=== PATIENT | female | born 1945 | race Caucasian/White ===

== ENCOUNTER → 2017-12-30 12:41 | Outpatient (CLI) | payer MEDICARE, OTHER ==
[2013-04-05 11:57] VITALS: BMI 36.1
[~2017-12-30 12:41] MED LIST: ASPIRIN 81 MG E81 MG PO; AVAPRO75 MG; LASIX20 MG PO; MAGNESIUM OXID250 M1 PO; ZIAC 10/6.25 MG1 TAB PO
== END | disposition home or self-care (01) ==
LOC: D.MRI 12:41
DX: M54.2 Cervicalgia (principal)

== ENCOUNTER → 2018-06-07 17:54 | Outpatient (CLI) | payer MEDICARE, OTHER ==
[2013-04-05 11:57] VITALS: BMI 36.1
== END | disposition home or self-care (01) ==
LOC: D.MAMMO 09:30
DX: N63.14 Unspecified lump in the right breast, lower inner quadrant (principal)

== ENCOUNTER 2020-08-05 16:51 | Inpatient (IN) | payer MEDICARE, OTHER ==
[~2020-08-05] VITALS: Ht 165.1 cm; Wt 86.2 kg
[~2020-08-05 16:51] MED LIST changes: -AVAPRO75 MG; +AVAPRO75 MG PO
[2020-08-05 18:48] LABS: BASOPHILS 0.3 % (0-2); EOSINOPHILS 1.4 % (0-7); HEMATOCRIT 42.4 % (36.0-48.0); HEMOGLOBIN 13.6 g/dL (12-16); IMMATURE GRANULOCYTES 0.2 % (0-5); LYMPHOCYTE ABS# 1.64 10x3/uL (1.18-3.74); LYMPHOCYTES 17.3 % (15-50); MCH 28.9 pg (26.0-34.0); MCHC 32.1 g/dL (31.0-37.0); MEAN PLATELET VOLUME 10.1 fL (7.4-10.4); NEUTROPHIL ABS# 6.88 10x3/uL (1.56-6.13); NEUTROPHILS 72.8 % (40-80); PLATELET COUNT 190 10x3/uL (130-400); RBC 4.71 10x6/uL (4.00-5.40); RDW 13.9 % (11.5-14.5); WBC 9.5 10x3/uL (4.8-10.8)
[2020-08-05 19:09] LABS: ALBUMIN 3.6 g/dL (3.4-5.0); ALKALINE PHOSPHATASE 69 U/L (30-120); ALT (SGPT) 31 U/L (10-68); AMYLASE - SERUM 18 U/L (25-115); BILIRUBIN - TOTAL 0.98 mg/dL (0.2-1.3); CALC OSMOLALITY 287 mosm/kg (275-300); CALCIUM 8.9 mg/dL (8.5-10.1); CARBON DIOXIDE 28.9 mmol/L (21.0-32.0); CHLORIDE - SERUM 103 mmol/L (98-107); CREATININE - SERUM 0.7 mg/dL (0.6-1.3); GLUCOSE 102 mg/dL (74-106); LIPASE 95 U/L (73-393); PRO BNP 130 pg/mL (0-450); PROTEIN - SERUM 7.6 g/dL (6.4-8.2); SODIUM 143 mmol/L (136-145); UREA NITROGEN 21 mg/dL (7-18); eGFR NON AFRICAN AMERICAN 86 mL/min (90-120)
[2020-08-05 19:12] LABS: POTASSIUM - SERUM 2.8 mmol/L (3.5-5.1)
[2020-08-05 19:13] LABS: APTT 24.8 SECONDS (22.8-39.4); INR 1.13 (0.85-1.17); PROTIME 13.4 SECONDS (11.6-15.0)
[2020-08-05 19:31] VITALS: BP 159/69; BMI 31.6
[2020-08-05 20:00] VITALS: BP 160/63
--- NOTE | 2020-08-05 20:00 | NUR ---
JHONY MURILLO IN BED IV STARTED 20G RIGHT FA, FLUIDS STARTED ORDERED, SEE SHIFT ASSESSMNT, CALL LIGHT IN REACH
[2020-08-05 21:43] LABS: CKMB 0.9 U/L (0.0-3.6); CREATINE KINASE 81 UL (21-215); MAGNESIUM - SERUM 2.1 mg/dL (1.8-2.4)
[2020-08-05 21:48] LABS: TROPONIN-I < 0.017 ng/mL (0.000-0.060)
[2020-08-06] VITALS: BP 165/63
[2020-08-06 04:00] VITALS: BP 140/51
[2020-08-06 06:35] LABS: BASOPHILS 0.3 % (0-2); EOSINOPHILS 3.1 % (0-7); HEMATOCRIT 37.9 % (36.0-48.0); HEMOGLOBIN 11.8 g/dL (12-16); IMMATURE GRANULOCYTES 0.1 % (0-5); LYMPHOCYTES 18.1 % (15-50); MCH 28.4 pg (26.0-34.0); MCHC 31.1 g/dL (31.0-37.0); MCV 91.1 fL (80.0-100.0); MEAN PLATELET VOLUME 10.1 fL (7.4-10.4); MONOCYTES 8.5 % (2-11); NEUTROPHIL ABS# 5.02 10x3/uL (1.56-6.13); NEUTROPHILS 69.9 % (40-80); PLATELET COUNT 203 10x3/uL (130-400); RBC 4.16 10x6/uL (4.00-5.40); WBC 7.2 10x3/uL (4.8-10.8)
[2020-08-06 06:48] LABS: ALBUMIN 2.9 g/dL (3.4-5.0); ALKALINE PHOSPHATASE 57 U/L (30-120); ALT (SGPT) 28 U/L (10-68); CALC OSMOLALITY 285 mosm/kg (275-300); CALCIUM 8.2 mg/dL (8.5-10.1); CARBON DIOXIDE 27.2 mmol/L (21.0-32.0); CHLORIDE - SERUM 107 mmol/L (98-107); GLUCOSE 88 mg/dL (74-106); MAGNESIUM - SERUM 2.1 mg/dL (1.8-2.4); POTASSIUM - SERUM 3.1 mmol/L (3.5-5.1); PROTEIN - SERUM 6.3 g/dL (6.4-8.2); SODIUM 143 mmol/L (136-145); UREA NITROGEN 17 mg/dL (7-18)
[2020-08-06 06:52] LABS: CREATININE - SERUM 0.5 mg/dL (0.6-1.3); eGFR NON AFRICAN AMERICAN > 90 mL/min (90-120)
[2020-08-06 08:42] LABS: BILIRUBIN NEGATIVE (NEGATIVE); KETONE SMALL mg/dL (NEGATIVE); NITRITE NEGATIVE (NEGATIVE)
[2020-08-06 08:43] LABS: BACTERIA FEW HPF (NONE SEEN); SQUAMOUS EPITHELIAL OCC HPF (0-4); WHITE CELLS - URINE 0-5 HPF (0-4)
[2020-08-06 09:10] VITALS: BP 174/67
--- NOTE | 2020-08-06 10:15 | NUR ---
REHAB PRESCREENING Rehab referral received and chart reviewed. This patient has PT and OT ordered. Rehab will continue to follow for admission criteria when evals are in place. Thanks so much! Raina Casas, ACUTE COORDINATOR Rehab PD
[2020-08-06 12:00] LABS: T4 THYROXINE 7.2 ug/dL (4.7-13.3); THYROID STIMULATING HORMONE 0.63 uIU/mL (0.36-3.74)
[2020-08-06 12:35] VITALS: BP 171/63
[2020-08-06 13:21] VITALS: Ht 165.1 cm; Wt 86.2 kg
--- NOTE | 2020-08-06 14:30 | NUR ---
REHAB PRESCREENING Evaluations in place. Ms. Shukla is a good candidate for acute inpatient rehab if she is willing to come. MRI has been ordered. We will continue to follow this patient for rehab admission when her physicians feel she is appropriate for discharge. Thank you for this referral! Raina Casas, PUBLIC HEALTH INTERNSHIP Rehab PD
[2020-08-06 16:44] VITALS: BP 130/51
--- NOTE | 2020-08-06 18:38 | NUR ---
OT NOTE: PT HAD C/O OF BACK PAIN. PT COMPLETED SIDE ROLLING WITH MOD A X2. PT COMPLETED SUPINE TO SIT WITH MOD A X2. PT COMPLETED EOB SITTING WITH SBA-CGA. PT COMPLETED POSITION WITH MAX A X2 FOR INCREASED COMFORT. PT EXHIBITED GRAVITATIONAL INSECURITY WITH BED MOB. PT IS COOPERATIVE BUT ANXIOUS. PT REQUIRED EXTENDED TIME WITH TASKS. PT COMPLETED FACE AND HAND HYGIENE WITH SETUP. [phone] THANK YOU,NETO MCGRAW
[2020-08-06 20:00] VITALS: BP 112/60; BP 180/62
--- NOTE | 2020-08-06 20:00 | NUR ---
ALERT RESTING IN BED, REPORTS BACK PAIN BUT DOES NOT WANT TO TAKE PAIN MEDS DUE TO CONSTIPATION, SEE SHIFT ASSESSMENT CALL LIGHT IN REACH
[2020-08-07] VITALS: BP 154/67
[2020-08-07 04:00] VITALS: BP 134/64
[2020-08-07 06:12] LABS: BASOPHILS 0.2 % (0-2); EOSINOPHILS 4.5 % (0-7); HEMOGLOBIN 12.1 g/dL (12-16); IMMATURE GRANULOCYTES 0.2 % (0-5); LYMPHOCYTE ABS# 1.36 10x3/uL (1.18-3.74); LYMPHOCYTES 21.2 % (15-50); MCH 28.3 pg (26.0-34.0); MCV 91.1 fL (80.0-100.0); MEAN PLATELET VOLUME 10.1 fL (7.4-10.4); MONOCYTES 10.4 % (2-11); NEUTROPHIL ABS# 4.08 10x3/uL (1.56-6.13); NEUTROPHILS 63.5 % (40-80); PLATELET COUNT 195 10x3/uL (130-400); RBC 4.28 10x6/uL (4.00-5.40); WBC 6.4 10x3/uL (4.8-10.8)
[2020-08-07 06:42] LABS: ALBUMIN 2.8 g/dL (3.4-5.0); ALKALINE PHOSPHATASE 59 U/L (30-120); ALT (SGPT) 30 U/L (10-68); CALC OSMOLALITY 283 mosm/kg (275-300); CARBON DIOXIDE 27.6 mmol/L (21.0-32.0); CHLORIDE - SERUM 107 mmol/L (98-107); CREATININE - SERUM 0.5 mg/dL (0.6-1.3); GLUCOSE 95 mg/dL (74-106); PROTEIN - SERUM 6.2 g/dL (6.4-8.2); SODIUM 142 mmol/L (136-145); UREA NITROGEN 14 mg/dL (7-18); eGFR NON AFRICAN AMERICAN > 90 mL/min (90-120)
[2020-08-07 09:11] VITALS: BP 160/84
--- NOTE | 2020-08-07 10:44 | NUR ---
AM MEDS. PATIENT IS WITHOUT DISTRESS.
--- NOTE | 2020-08-07 12:51 | NUR ---
SPOKE TO DR SAUCEDA, RELAYED ORDER AND DC PLAN TO DR GALE AND MJ. CONTINUE WITH PLAN OF CARE
[2020-08-07 12:57] VITALS: BP 176/81
--- NOTE | 2020-08-07 14:11 | NUR ---
OT NOTE: PT DOING BETTER TODAY. REPORTS SIGNIFICANT PAIN RELIEF SECONDARY TO PAIN MEDS. PROVIDES INFO REGARDING UPCOMING SURGERY.. EDUCATION ON "LOG ROLLING" AND ABLE TO PERFORM SUPINE TO SIT WITH MOD ASSIST; IN ROOM AMB WITH WALKER AND MIN ASSIST; TOILET TRANSFER WITH MIN ASSIST AND MOD ASSIST FOR SIT TO STAND FROM TOILET. GROOMING AND FEEDING WITH SET UP. RECOMMEND IP REHAB [facility], OTR/L 130-2
[2020-08-07 17:07] VITALS: BP 136/65
[2020-08-07 20:00] VITALS: BP 152/83
--- NOTE | 2020-08-07 20:00 | NUR ---
ALERT RESTING IN BED, DENIES NEEDS AT THIS TIME, SEE SHIFT ASSESSMENT CALL ONEL ROBERTS
[2020-08-08 04:00] VITALS: BP 132/63
[2020-08-08 06:46] LABS: ALBUMIN 2.5 g/dL (3.4-5.0); ALKALINE PHOSPHATASE 54 U/L (30-120); ALT (SGPT) 26 U/L (10-68); BILIRUBIN - TOTAL 0.46 mg/dL (0.2-1.3); CALCIUM 7.7 mg/dL (8.5-10.1); CARBON DIOXIDE 30.1 mmol/L (21.0-32.0); CHLORIDE - SERUM 108 mmol/L (98-107); CREATININE - SERUM 0.5 mg/dL (0.6-1.3); GLUCOSE 118 mg/dL (74-106); MAGNESIUM - SERUM 2.2 mg/dL (1.8-2.4); PROTEIN - SERUM 5.8 g/dL (6.4-8.2); SODIUM 143 mmol/L (136-145); eGFR NON AFRICAN AMERICAN > 90 mL/min (90-120)
[2020-08-08 06:47] LABS: BASOPHILS 0.2 % (0-2); EOSINOPHILS 4.9 % (0-7); HEMATOCRIT 37.5 % (36.0-48.0); HEMOGLOBIN 11.6 g/dL (12-16); IMMATURE GRANULOCYTES 0.2 % (0-5); LYMPHOCYTE ABS# 1.01 10x3/uL (1.18-3.74); LYMPHOCYTES 18.3 % (15-50); MCH 28.2 pg (26.0-34.0); MCHC 30.9 g/dL (31.0-37.0); MCV 91.2 fL (80.0-100.0); MEAN PLATELET VOLUME 10.1 fL (7.4-10.4); MONOCYTES 9.4 % (2-11); PLATELET COUNT 188 10x3/uL (130-400); RBC 4.11 10x6/uL (4.00-5.40); RDW 13.9 % (11.5-14.5); WBC 5.5 10x3/uL (4.8-10.8)
[2020-08-08 06:48] LABS: CALC OSMOLALITY 284 mosm/kg (275-300); UREA NITROGEN 10 mg/dL (7-18)
--- NOTE | 2020-08-08 07:45 | NUR ---
PT RESTING IN BED. CALLING OUT FOR ASSISTANCE. PT HAS HAD INCONTINENCE SPELL. PROVIDED JOSE CARE AND BEDDING CHANGED. RESP EVEN AND UNLABORED. IV TO RIGHT FOREARM WITH NS @ 75ML/HR INFUSING VIA PUMP. SITE WITHOUT REDNESS OR EDEMA. PT VOICES NEED FOR MUSCLE RELAXER. EDUCATED PT REGARDING NEXT SCHEDULED DOSE FOR MED. PT VOICES UNDERSTANDING. DENIES FURTHER NEEDS AT THIS TIME. CL WITHIN REACH. ENCOURAGED TO CALL WITH NEEDS. CONTINUE POC
[2020-08-08 09:33] VITALS: BP 150/71
--- NOTE | 2020-08-08 10:29 | NUR ---
REHAB PRESCREENING Rehab referral received and chart reviewed. Ms. Shukla is a good candidate for acute inpatient rehab if she is agreeable to come. I will beging her electronic screen. She can be admitted to rehab when approvals are in place and her physicians feel she is appropriate for discharge. Thank you for this referral! Raina Casas, ROBOTICS SYSTEMS ENGINEER Rehab PD
[2020-08-08] MEDS ORDERED: ZANAFLEX4 MG PO (12:01)
[2020-08-08] MEDS ORDERED: MIRALAX17 GM PO (12:04)
[2020-08-08 13:40] VITALS: BP 146/59
--- NOTE | 2020-08-08 14:45 | MORECARE ---
CASE MANAGEMENT DISCHARGE SUMMARY PATIENT: CAITLIN TOPETE UNIT: [id number] ADM DATE: 08/06/20 AGE: 75 : 45 SEX: F ROOM/BED: D.2219 AUTHOR: BENITA,DOC PHYSICIAN: REFERRING PHYSICIAN: MARE OLEA MD DATE OF SERVICE: 08/08/20 Case Management Discharge Planning Summary CT Patient Name: CAITLIN TOPETE Attending MD : MARE DOMÍNGUEZ Medical Record: [id number] Encounter : [id number] Facility : [address] [place] [address] Admission Date : 113:51 Center Discharge Date : [address] [place] [address] Date of : DC Plan ID : [id number] Age/Sex/Martia : 75/ F/M Printed on : 08/08/20 14:43 CT DCP Review Details Anticipated D/C: Expected LOS : Case Status : INITIATED - Initial Reviewe: [id number] - Alma Rosales Initial Review: 08/05/2020 Planned Disposi: - Final Discharge: - Final Reviewer : : Final Review : Comments CT Entered Date Type Reviewer 08/08/20 14:16 CT Discharge Planning Alma Rosales Comment CM met with patient at bedside after obtaining verbal consent. CM discussed availability / needs of home health, REHAB and medical equipment. PATIENT WOULD LIKE TO GO TO INPATIENT REHAB AT [facility]. CARMEN SIGNED AND IMM AND PLACED ON CHART. PATIENT HAS ROLLATOR ANDCANE AT HOME. LIVES AT [facility]. DR. RAMIREZ IS PCP. SHE LIVES ALONE. PLAN FOR DC TO [facility] TODAY. TLSO BRACE WILL BE DELIVERED TO HER ROOM PER NURSING. CM TO FOLLOW AND ASSIST NEEDED. DCP Focus Questions & Answers [facility] CAITLIN TOPETE MR#: [id number] /Age/Sex/Ujttuk4-Axn-24 /75/F /M Attending Physician Name: DEBBY OLEA [id number] Patient Account:[id number] [facility] 1 All edits/amendments must be made on the electronic document DICTATION DATE: 08/08/201442 REGIONAL ECONOMIC LIAISON: GAGAN 08/08/201442 RPT#: [id number] DC DATE: STATUS: ADM IN [facility] [address] [place] [address] END OF REPORT
--- NOTE | 2020-08-08 15:00 | NUR ---
RECEIVED NOTIFICATION THAT SON HAD CONTACTED STAFF AND STATED THAT HIS MOTHER, PT, HAD VOICED THAT IF SHE WERE TO MAKE IT HOME THAT SHE WAS GOING TO KILL HERSELF. STAFF ENTERED ROOM AND VOICED TO STAFF, "MY STUPID SON. CALLED UP HERE AND TOLD EVERYONE THAT I WAS TALKING SUICIDE. I AM NOT SUICIDAL, I WAS JUST BLOWING STEAM. I'M 76 YEARS OLD, WHY WOULD I END MY LIFE NOW, I COULD HAVE DONE IT MANY YEARS AGO. I'M NOT GOING TO DO ANYTHING. I AM GOING TO GO TO REHAB AND LEARN WAYS TO TAKE CARE OF MYSELF, AND WHEN I GET HOME AND I CAN'T DO SOMETHING THEN I WILL CALL MY NEIGHBOR WHOSE HOUSE IS IN MY BACK YARD TO COME AND HELP ME. BUT I PROMISE I AM NOT GOING TO DO ANYTHING."
--- NOTE | 2020-08-08 15:15 | NUR ---
CONTACTED PANTERA HUGHES APN REGARDING PT SONS CALL AND TALKING WITH PT. ORDER PLACED FOR PSYCH CONSULT AT THIS TIME.
--- NOTE | 2020-08-08 16:05 | NUR ---
Patient score of 0. She has never had any suicidal thoughts or actions. She just let of stearm to her son and he thought she was taking literally about her "killing herself". She states she "would never do that!, I'd not get to go to [facility]" Rev'd interview and risk score with charge nurse and Dr. Barksdale. No further interventions needed at this date/time.
--- NOTE | 2020-08-08 16:25 | NUR ---
OT NOTE: PT COMPLETED SIT TO STAND WITH CGA. PT COMPLETED SITTING BALANCE WITH SPV. PT COMPLETED HAIR GROOMING WITH SETUP. PT FACE HYGIENE WITH SETUP. PT REQUIRED EXTRA TIME AND MIN VERBAL CUES. [phone] THANK YOU,NETO MCGRAW
--- NOTE | 2020-08-08 16:58 | NUR ---
REPORT CALLED TO TERESA RAIN IN REHAB
--- NOTE | 2020-08-08 17:46 | MORECARE ---
CASE MANAGEMENT DISCHARGE SUMMARY PATIENT: CAITLIN TOPETE UNIT: [id number] ADM DATE: 08/06/20 AGE: 75 : 45 SEX: F ROOM/BED: D.2219 AUTHOR: BENITA,DOC PHYSICIAN: REFERRING PHYSICIAN: MARE OLEA MD DATE OF SERVICE: 08/08/20 Case Management Discharge Planning Summary CT Patient Name: CAITLIN TOPETE Attending MD : MARE DOMÍNGUEZ Medical Record: [id number] Encounter : [id number] Facility : [address] [place] [address] Admission Date : 113: Center Discharge Date : 08/08/[address] [place] [address] Date of : DC Plan ID : [id number] Age/Sex/Martia : 75/ F/M Printed on : 08/08/20 17:45 CT DCP Review Details Anticipated D/C: Expected LOS : Case Status : INITIATED - Initial Reviewe: [id number] - Alma Rosales Initial Review: 08/05/2020 Planned Disposi: - Final Discharge: - Final Reviewer : : Final Review : Comments CT Entered Date Type Reviewer 08/08/20 14:16 CT Discharge Planning Alma Rosales Comment CM met with patient at bedside after obtaining verbal consent. CM discussed availability / needs of home health, REHAB and medical equipment. PATIENT WOULD LIKE TO GO TO INPATIENT REHAB AT [facility]. CARMEN SIGNED AND IMM AND PLACED ON CHART. PATIENT HAS ROLLATOR ANDCANE AT HOME. LIVES AT [facility]. DR. RAMIREZ IS PCP. SHE LIVES ALONE. PLAN FOR DC TO [facility] TODAY. TLSO BRACE WILL BE DELIVERED TO HER ROOM PER NURSING. CM TO FOLLOW AND ASSIST NEEDED. DCP Focus Questions & Answers [facility] CAITLIN TOPETE MR#: [id number] /Age/Sex/Orohvi5-Itf-71 /75/F /M Attending Physician Name: DEBBY OLEA [id number] Patient Account:[id number] [facility] Page -1 of 1 All edits/amendments must be made on the electronic document DICTATION DATE: 08/08/201744 MEND WORKER: GAGAN 08/08/201744 RPT#: [id number] DC DATE:08/08/20 STATUS: DIS IN [facility] [address] [place] [id number] END OF REPORT
--- NOTE | 2020-08-11 10:42 | EC ---
PATIENT:CAITLIN TOPETE DATE OF SERVICE: 08/06/20 SEX: F MEDICAL RECORD: [id number] DATE OF : 45 LOCATION:[facility] AGE OF PATIENT: 75 ADMISSION DATE: 08/06/20 REFERRING PHYSICIAN: INTERPRETING PHYSICIAN: FLORA GARCIA MD ECHOCARDIOGRAM REPORT ECHO CHARGES 4 ECHO COMPLETE Date: 08/06/20 CLINICAL DIAGNOSIS: SYNCOPE ECHOCARDIOGRAPHIC MEASUREMENTS (adult normal given) AC root (d.<3.7cm) 2.9 cm LV Septum d (<1.2 cm> 0.8 cm Valve Excursion 1.6 cm LV Septum (systole) 1.1 cm Left Atria (s.<4.0cm> 4.2 cm LVPW d(<1.2cm) 1.1 cm RV (d.<2.3cm) 2.4 cm LVPW (sytole) 1.2 cm LV diastole(<5.6CM) 5.8 cm MV E-F(>70mm/sec) cm LV systole 3.9 cm LVOT Diameter 1.7 cm MV exc.(>10mm) 2.0 cm Est.ejection fraction (50-75%) % DOPPLER: LVIT cm/sec A 104 cm/sec E 71 cm/sec LA cm/sec RVSP 33 mmHg LVOT 182 cm/sec AOP1/2T m/s Asc. Ao 205 cm/sec RVOT 102 cm/sec RA cm/sec PA 134 cm/sec AV Gradient Peak 16.8 mmHg AV Mean 6.3 mmHg AV Area 1.9 cm MV Gradient Peak 3.8 mmHg MV Mean 2.1 mmHg MV Area cm COMMENTS: Can Runner: Fito SRIVASTAVA Civil Preparedness Officer: 3 Dr. Lieberman TAPE# Pericardial Effusion N DATE OF SERVICE: Adequate 2D, color flow imaging, spectral Doppler, and M-Mode. No LVH. LV internal dimensions are normal. Wall motion normal. EF greater than or equal to 55%. Aortic valve is sclerotic. No evidence of stenosis by Doppler interrogation. Left atrium is minimally dilated 4.2 cm. Mitral valve shows no prolapse. Trace MR. Right-sided chambers are grossly normal. Trace TR. ECHOCARDIOGRAM REPORT [id number] CAITLIN TOPETE TRANSINT:[id number] Voice Confirmation ID: [id number] DOCUMENT ID: [id number] FLORA GARCIA MD at 1042 CC: [id number] DICTATION DATE: 08/06/20 1641 STRADDLE TRUCK DRIVER: 08/06/202108 DIS IN 08/08/20 [place] [place] [address]
--- NOTE | 2020-08-11 14:51 | MORECARE ---
CASE MANAGEMENT DISCHARGE SUMMARY PATIENT: CAITLIN TOPETE UNIT: [id number] ADM DATE: 08/06/20 AGE: 75 : 45 SEX: F ROOM/BED: D.2219 AUTHOR: BENITA,DOC PHYSICIAN: REFERRING PHYSICIAN: MARE OLEA MD DATE OF SERVICE: 08/11/20 Case Management Discharge Planning Summary CT Patient Name: CAITLIN TOPETE Attending MD : MARE DOMÍNGUEZ Medical Record: [id number] Encounter : [id number] Facility : [address] [place] [address] Admission Date : 113:51 Center Discharge Date : 08/08/[address] [place] [address] Date of : DC Plan ID : [id number] Age/Sex/Martia : 75/ F/M Printed on : 08/11/20 14:50 CT DCP Review Details Anticipated D/C: Expected LOS : Case Status : INITIATED - Initial Reviewe: [id number] - Alma Rosales Initial Review: 08/05/2020 Planned Disposi: - Final Discharge: - Final Reviewer : : Final Review : Comments CT Entered Date Type Reviewer 08/08/20 14:16 CT Discharge Planning Alma Rosales Comment CM met with patient at bedside after obtaining verbal consent. CM discussed availability / needs of home health, REHAB and medical equipment. PATIENT WOULD LIKE TO GO TO INPATIENT REHAB AT [facility]. CARMEN SIGNED AND IMM AND PLACED ON CHART. PATIENT HAS ROLLATOR ANDCANE AT HOME. LIVES AT [facility]. DR. RAMIREZ IS PCP. SHE LIVES ALONE. PLAN FOR DC TO [facility] TODAY. TLSO BRACE WILL BE DELIVERED TO HER ROOM PER NURSING. CM TO FOLLOW AND ASSIST NEEDED. DCP Focus Questions & Answers [facility] CAITLIN TOPETE MR#: [id number] /Age/Sex/Tvtkuq5-Pfl-28 /75/F /M Attending Physician Name: DEBBY OLEA [id number] Patient Account:[id number] [facility] Page -1 of 1 All edits/amendments must be made on the electronic document DICTATION DATE: 08/11/20 145 GRAVITY PROSPECTING OPERATOR: GAGAN 08/11/20 145 RPT#: [id number] DC DATE:08/08/20 STATUS: DIS IN [facility] [address] [place] [address] END OF REPORT
== END 2020-08-08 17:33 | DRG 689 ==
LOC: D.MS 16:51 → OBSVTIME 16:51 → D.MS 16:51
PROVIDERS: Family Medicine; ADMIT Family Medicine; ATTEND Family Medicine
DX: N39.0 Urinary tract infection, site not specified (principal); G93.41 Metabolic encephalopathy; E42 Marasmic kwashiorkor; E43 Unspecified severe protein-calorie malnutrition; I50.22 Chronic systolic (congestive) heart failure; I11.0 Hypertensive heart disease with heart failure; E78.5 Hyperlipidemia, unspecified; I73.9 Peripheral vascular disease, unspecified; R26.89 Other abnormalities of gait and mobility; E87.6 Hypokalemia; R63.4 Abnormal weight loss; Z68.36 Body mass index [BMI] 36.0-36.9, adult; S22.081D Stable burst fracture of T11-T12 vertebra, subsequent encounter for fracture with routine healing

== ENCOUNTER 2020-08-08 17:30 | Inpatient (IN) | payer MEDICARE, OTHER ==
[~2020-08-08] VITALS: Ht 165.1 cm; Wt 83.9 kg
[~2020-08-08 17:30] MED LIST changes: +MIRALAX17 GM PO; +ZANAFLEX4 MG PO
[2020-08-08 18:05] VITALS: BP 152/66; BMI 30.8
[2020-08-08 20:00] VITALS: BP 157/63
--- NOTE | 2020-08-08 20:00 | NUR ---
PATIENT RECEIVED SITTING UP IN BED. ASSESSMENT & VITAL SIGNS DONE. PATIENT HAD NO C/O PAIN OR DISTRESS AT THIS TIME. PATIENT TOILETED WITH MINIMAL ASSIST OUT OF BED USING ROLLING WALKER. PATIENT ABLE TO CLEAN PERIAREA. VOID ONLY. RETURNED TO LOW BED. ALARM ON. CALL LIGHT & BEDSIDE TABLE WITHIN REACH. WILL CONTINUE TO MONITOR.
--- NOTE | 2020-08-08 22:32 | NUR ---
I have reviewed this patient and I concur with the Shift Assessment completed by the Licensed Practical Nurse today this shift.
--- NOTE | 2020-08-09 02:40 | NUR ---
PATIENT USED CALL LIGHT FOR ASSIST. PATIENT MODERATE ASSIST INTO & OUT OF BED. PATIENT USED ROLLING WALKER TO BATHROOM. INDEPENDENT WITH TOILETING & PERICARE. PATIENT BRUSHED HER HAIR & TEETH. RETURNED TO LOW BED. ALARM ON. BEDSIDE TABLE & CALL LIGHT WITHIN REACH. WILL CONTINUE TO MONITOR.
[2020-08-09 06:02] LABS: BASOPHILS 0.2 % (0-2); EOSINOPHILS 3.8 % (0-7); HEMATOCRIT 37.8 % (36.0-48.0); IMMATURE GRANULOCYTES 0.4 % (0-5); LYMPHOCYTE ABS# 1.11 10x3/uL (1.18-3.74); LYMPHOCYTES 19.9 % (15-50); MCH 28.8 pg (26.0-34.0); MCHC 31.7 g/dL (31.0-37.0); MCV 90.9 fL (80.0-100.0); MEAN PLATELET VOLUME 9.9 fL (7.4-10.4); MONOCYTES 10.2 % (2-11); NEUTROPHIL ABS# 3.65 10x3/uL (1.56-6.13); NEUTROPHILS 65.5 % (40-80); PLATELET COUNT 181 10x3/uL (130-400); RBC 4.16 10x6/uL (4.00-5.40); WBC 5.6 10x3/uL (4.8-10.8)
[2020-08-09 06:10] LABS: CALC OSMOLALITY 287 mosm/kg (275-300); CALCIUM 8.1 mg/dL (8.5-10.1); CARBON DIOXIDE 31.2 mmol/L (21.0-32.0); CHLORIDE - SERUM 107 mmol/L (98-107); CREATININE - SERUM 0.5 mg/dL (0.6-1.3); GLUCOSE 107 mg/dL (74-106); POTASSIUM - SERUM 3.4 mmol/L (3.5-5.1); SODIUM 145 mmol/L (136-145); UREA NITROGEN 11 mg/dL (7-18); eGFR NON AFRICAN AMERICAN > 90 mL/min (90-120)
--- NOTE | 2020-08-09 07:15 | NUR ---
AWAKE AND ALERT. ORIENTED X3. UP TO BR WITH ONE PERSON MIN ASSIST . VOIDED WITHOUT DIFFICULTY. REFUSED TO WEAR TLSO EVEN AFTER EXPLAINED NEED TO USE. LUNGS ARE CLEAR BILATERALLY, NO COUGH NOTED. ENCOURAGED TO USE IS INSTRUCTED. SITTING UP IN CHAIR AT BEDSIDE FOR BREAKFAST.
[2020-08-09 08:00] VITALS: BP 142/68
--- NOTE | 2020-08-09 09:30 | NUR ---
ATE MOST OF BREAKFAST. TOOK AM MEDS WITHOUT DIFFICULTY. UP AMBULATED IN HALLWAY WITH PT.
[2020-08-09 11:18] VITALS: Ht 165.1 cm; Wt 83.9 kg
--- NOTE | 2020-08-09 13:27 | NUR ---
ATE MOST OF LUNCH. DENIES NEEDS. NO CHANGES AT THIS TIME.
--- NOTE | 2020-08-09 17:43 | NUR ---
UP TO BR WITH ONE PERSON MIN ASSIST. VOIDED WITHOUT DIFFICULTY. UP IN CHAIR AT BEDSIDE FOR SUPPER. ATE MOST OF SUPPER. NO CHANGES NOTED. DENIES NEEDS.
--- NOTE | 2020-08-09 19:29 | NUR ---
PATIENT RECEIVED SITTING UP IN BED. ASSESSMENT & VITAL SIGNS DONE. NO C/O PAIN OR DISTRESS. PATIENT GIVEN POTASSIUM 40 MEQ D/T TO LAB VALUE 3.4. POTASSIUM LAB TO BE DRAWN 0 ORDERED. BED LOW. CALL LIGHT WITHIN REACH. WILL CONTINUE TO MONITOR.
[2020-08-09 20:00] VITALS: BP 140/56
--- NOTE | 2020-08-09 22:32 | NUR ---
I have reviewed this patient and I concur with the Shift Assessment completed by the Licensed Practical Nurse today this shift.
--- NOTE | 2020-08-09 23:05 | NUR ---
LAB RESULTS BACK POTASSIUM 3.5. ELECTROLYTE PRODICOL GIVE 40 MEQ OF POTASSIUM. PATIENT GIVEN 2 20 MEQ OF POTASSIUM. RECHECK LABS IN THE MORNING. PATIENT REQUEST FOR FOODS TO EAT FOR POTASSIUM. LIST OF POTASSIUM RICH FOODS PRINTED & GIVEN TO PATIENT. WILL CONTINUE TO MONITOR.
--- NOTE | 2020-08-10 03:34 | NUR ---
PATIENT EYES CLOSED. RESPIRATIONS 19 & EVEN. BED LOW. ALARM ON. CALL LIGHT & BESIDE TABLE WITHIN REACH. WILL CONTINUE TO MONITOR.
--- NOTE | 2020-08-10 04:54 | NUR ---
PATIENT USED CALL LIGHT FOR ASSIST. PATIENT MINIMAL ASSIST OUT OF BED. PATIENT AMBULATED USING ROLLING WALKER TO COMMODE. VOID ONLY. PATIENT WASHED HANDS & RETURNED TO LOW BED. BEDSIDE TABLE & CALL LIGHT WITHIN REACH. WILL CONTINUE TO MONITOR.
[2020-08-10 06:20] LABS: BASOPHILS 0.2 % (0-2); CALC OSMOLALITY 283 mosm/kg (275-300); CALCIUM 8.6 mg/dL (8.5-10.1); CARBON DIOXIDE 28.1 mmol/L (21.0-32.0); CHLORIDE - SERUM 107 mmol/L (98-107); CREATININE - SERUM 0.5 mg/dL (0.6-1.3); EOSINOPHILS 5.5 % (0-7); GLUCOSE 107 mg/dL (74-106); HEMOGLOBIN 11.9 g/dL (12-16); LYMPHOCYTE ABS# 1.41 10x3/uL (1.18-3.74); MCH 28.3 pg (26.0-34.0); MCHC 30.5 g/dL (31.0-37.0); MEAN PLATELET VOLUME 9.8 fL (7.4-10.4); NEUTROPHIL ABS# 2.74 10x3/uL (1.56-6.13); NEUTROPHILS 56.3 % (40-80); PLATELET COUNT 177 10x3/uL (130-400); RDW 14.2 % (11.5-14.5); SODIUM 142 mmol/L (136-145); UREA NITROGEN 14 mg/dL (7-18); WBC 4.9 10x3/uL (4.8-10.8); eGFR NON AFRICAN AMERICAN > 90 mL/min (90-120)
[2020-08-10 07:11] LABS: MCV 92.9 fL (80.0-100.0)
--- NOTE | 2020-08-10 07:39 | NUR ---
PT RESTING IN BED WITH EYES OPEN CALL LIGHT IN REACH WILL MONITER
--- NOTE | 2020-08-10 07:58 | NUR ---
PT RESTING IN BED WITH EYES OPEN CALL LIGHT IN REACH WILL MONITER
[2020-08-10 08:00] VITALS: BP 143/63
--- NOTE | 2020-08-10 18:00 | NUR ---
PT UP TO BATHROOM REPORTED HAVING DIAREHEA SAID SHE DID NOT WANNA TAKE NEXT DOSE OF MIRILAX
--- NOTE | 2020-08-10 18:35 | NUR ---
PT RESTING IN BED WITH EYES OPEN WATCHING TV CALL LIGHT IN REACH WILL MONITER
[2020-08-10 19:33] VITALS: BP 151/61
--- NOTE | 2020-08-10 19:41 | NUR ---
PATIENT RECEIVED SITTING UP IN BED. ASSESSMENT & VITAL SIGNS DONE. NO C/O PAIN OR DISTRESS. BED SIDE TABLE & CALL LIGHT WITHIN REACH. ALARM ON. WILL COMTINUE TO MONITOR.
--- NOTE | 2020-08-11 01:27 | NUR ---
PATIENT EYES CLOSED. RESPIRATIONS 28 & EVEN. BED LOW. BEDSIDE TABLE & CALL LIGHT WITHIN REACH. ANTHONY CONTINUE TO MONITOR.
--- NOTE | 2020-08-11 02:03 | NUR ---
PATIENT USED CALL LIGHT FOR ASSIST. STANDBY ASSIST IN & OUT OF BED & WHEELCHAIR. PATIENT HAD VOID. RETURNED TO LOW BED. ALARM ON. BEDSIDE TABLE & CALL LIGHT WITHIN REACH. WILL CONTINUE TO MONITOR.
--- NOTE | 2020-08-11 04:01 | NUR ---
PATIENT PAIN MEDICATION EFFECTIVE. EYES CLOSED. RESPIRATIONS 18 & EVEN. BED LOW. ALARM ON. CALL LIGHT WITHIN REACH. WILL CONTINUE TO MONITOR.
--- NOTE | 2020-08-11 06:09 | NUR ---
I have reviewed this patient and I concur with the Shift Assessment completed by the Licensed Practical Nurse today this shift.
[2020-08-11 08:02] VITALS: BP 157/73
--- NOTE | 2020-08-11 08:53 | NUR ---
SHE IS SETTING UP IN THE WHEELCHAIR FOR BREAKFAST. SHE IS USING THE WALKER TO GET TO THE BATRHROOM. THE CALL LIGHT IS WITHIN REACH.
[2020-08-11 09:11] LABS: CALC OSMOLALITY 283 mosm/kg (275-300); CALCIUM 9.1 mg/dL (8.5-10.1); CARBON DIOXIDE 29.8 mmol/L (21.0-32.0); CHLORIDE - SERUM 106 mmol/L (98-107); GLUCOSE 114 mg/dL (74-106); POTASSIUM - SERUM 3.6 mmol/L (3.5-5.1); SODIUM 142 mmol/L (136-145); UREA NITROGEN 13 mg/dL (7-18); eGFR NON AFRICAN AMERICAN 86 mL/min (90-120)
[2020-08-11 09:12] LABS: CREATININE - SERUM 0.7 mg/dL (0.6-1.3)
[2020-08-11 09:13] LABS: BASOPHILS 0.2 % (0-2); EOSINOPHILS 6.7 % (0-7); HEMATOCRIT 41.6 % (36.0-48.0); HEMOGLOBIN 12.8 g/dL (12-16); IMMATURE GRANULOCYTES 0.2 % (0-5); LYMPHOCYTE ABS# 1.14 10x3/uL (1.18-3.74); LYMPHOCYTES 21.8 % (15-50); MCH 28.4 pg (26.0-34.0); MCHC 30.8 g/dL (31.0-37.0); MCV 92.2 fL (80.0-100.0); NEUTROPHIL ABS# 3.24 10x3/uL (1.56-6.13); NEUTROPHILS 62.1 % (40-80); RBC 4.51 10x6/uL (4.00-5.40); RDW 14.2 % (11.5-14.5); WBC 5.2 10x3/uL (4.8-10.8)
[2020-08-11 09:19] LABS: PLATELET COUNT 231 10x3/uL (130-400)
--- NOTE | 2020-08-11 09:49 | NUR ---
PATIENT ADMITTED TO REHAB FROM ACUTE FLOOR. HER PCP IS DR. OLEA, SHE RESIDES AT [facility]. DISCHARGE PLANS ARE FOR PATIENT TO RETURN TO HER HOME. WILL CONTINUE TO FOLLOW WITH PATIENT.
[2020-08-11 19:21] VITALS: BP 123/70
--- NOTE | 2020-08-11 19:30 | NUR ---
AWAKE AND ALERT. SITTING IN CHAIR IN ROOM WITH RESPIRATIONS UNLABORED. NO DISTRESS NOTED. CALL LIGHT IN REACH.
--- NOTE | 2020-08-11 23:30 | NUR ---
ASSISTED TO BATHROOM AND BACK TO BED. STEADY GAIT WITH WALKER. COMPLIANT WITH INSTRUCTIONS FROM PHYSICAL THERAPY REGARDING BED TRANSFER.
--- NOTE | 2020-08-12 05:12 | NUR ---
QUIET HOURS. NO ACUTE CHANGES IN CONDITION THIS SHIFT. RESTING IN BED WITH NO DISTRESS NOTED.
[2020-08-12 07:07] LABS: CALC OSMOLALITY 281 mosm/kg (275-300); CALCIUM 8.3 mg/dL (8.5-10.1); CARBON DIOXIDE 30.5 mmol/L (21.0-32.0); CHLORIDE - SERUM 105 mmol/L (98-107); GLUCOSE 99 mg/dL (74-106); SODIUM 141 mmol/L (136-145); UREA NITROGEN 15 mg/dL (7-18)
[2020-08-12 07:08] LABS: BASOPHILS 0.5 % (0-2); CREATININE - SERUM 0.5 mg/dL (0.6-1.3); EOSINOPHILS 6.2 % (0-7); HEMATOCRIT 38.1 % (36.0-48.0); HEMOGLOBIN 11.7 g/dL (12-16); IMMATURE GRANULOCYTES 0.2 % (0-5); LYMPHOCYTE ABS# 1.52 10x3/uL (1.18-3.74); LYMPHOCYTES 26.3 % (15-50); MCH 28.3 pg (26.0-34.0); MCHC 30.7 g/dL (31.0-37.0); MEAN PLATELET VOLUME 9.9 fL (7.4-10.4); MONOCYTES 11.8 % (2-11); NEUTROPHIL ABS# 3.18 10x3/uL (1.56-6.13); PLATELET COUNT 210 10x3/uL (130-400); RBC 4.14 10x6/uL (4.00-5.40); RDW 14.1 % (11.5-14.5); WBC 5.8 10x3/uL (4.8-10.8); eGFR NON AFRICAN AMERICAN > 90 mL/min (90-120)
--- NOTE | 2020-08-12 08:43 | NUR ---
SHE IS ALERT, USING THE WALKER TO GET TO THE BATHROOM. SETTING UP IN THE RECLINER FOR BREAKFAST. THE CALL LIGHT IS WITHIN REACH.
[2020-08-12 08:58] VITALS: BP 154/86
--- NOTE | 2020-08-12 14:47 | NUR ---
Nutrition Follow-up Diet: Regular PO intake: ~88% average x last 9 meals. She reports good appetite and had several compliments about the meals and food safety director. Last BM: 08/10/20 Wt: 185# (08/09/20) Meds noted: magox, lasix, miralax Labs reviewed Recommend: -Continue current diet. -RD will follow-up within 7 days.
--- NOTE | 2020-08-12 20:17 | NUR ---
AWAKE AND ALERT. RESTING IN BED WITH NO DISTRESS NOTED. CALL LIGHT IN REACH.
--- NOTE | 2020-08-13 01:26 | NUR ---
RESTING QUIETLY. NO DISTRESS NOTED.
--- NOTE | 2020-08-13 05:19 | NUR ---
QUIET HOURS. NO ACUTE CHANGES IN CONDITION THIS SHIFT. RESTING IN BED WITH NO DISTRESS NOTED.
[2020-08-13 06:01] LABS: CALC OSMOLALITY 283 mosm/kg (275-300); CALCIUM 8.6 mg/dL (8.5-10.1); CARBON DIOXIDE 28.2 mmol/L (21.0-32.0); CHLORIDE - SERUM 107 mmol/L (98-107); CREATININE - SERUM 0.6 mg/dL (0.6-1.3); GLUCOSE 113 mg/dL (74-106); POTASSIUM - SERUM 3.7 mmol/L (3.5-5.1); SODIUM 141 mmol/L (136-145); UREA NITROGEN 17 mg/dL (7-18); eGFR NON AFRICAN AMERICAN > 90 mL/min (90-120)
[2020-08-13 08:35] LABS: BASOPHILS 0.2 % (0-2); EOSINOPHILS 5.9 % (0-7); HEMATOCRIT 37.3 % (36.0-48.0); HEMOGLOBIN 11.5 g/dL (12-16); LYMPHOCYTE ABS# 1.58 10x3/uL (1.18-3.74); MCH 28.6 pg (26.0-34.0); MCHC 30.8 g/dL (31.0-37.0); MCV 92.8 fL (80.0-100.0); MONOCYTES 10.7 % (2-11); NEUTROPHIL ABS# 3.48 10x3/uL (1.56-6.13); NEUTROPHILS 57.2 % (40-80); PLATELET COUNT 214 10x3/uL (130-400); RBC 4.02 10x6/uL (4.00-5.40); RDW 14.3 % (11.5-14.5); WBC 6.1 10x3/uL (4.8-10.8)
--- NOTE | 2020-08-13 15:06 | NUR ---
CARE TEAM MEETING ; PATIENT SON ATTENDED THE MEETING. HIS QUESTIONS AND CONCERNS WERE ADDRESSED. PATIENT TENATIVE DC DATE IS 08/15/20. WILL CONTINUE TO FOLLOW WITH PATIENT.
[2020-08-13 20:00] VITALS: BP 140/76
--- NOTE | 2020-08-14 03:19 | NUR ---
PT RESTING WITH EYES CLOSED. RESPIRATIONS EVEN AND UNLABORED. BED IS LOW, BED ALARM ON AND CALL LIGHT WITHIN REACH.
--- NOTE | 2020-08-14 09:50 | NUR ---
PT RESTING IN BED WITH EYES OPEN CALL LIGHT IN REACH WILL MONITER
[2020-08-14] MEDS ORDERED: HYDROCODON-ACE1 EAC7 PO (15:27)
[2020-08-14] MEDS ORDERED: LIDODERM 5 %1 PATCH TRANSDERM (15:27)
--- NOTE | 2020-08-14 15:51 | NUR ---
ORDERS HAVE BEEN FAXED TO [facility] ABOUT PENDING DISCHARGE HOME IN THE AM. WILL CONTINUE TO FOLLOW WITH PATIENT.
--- NOTE | 2020-08-14 17:53 | NUR ---
PT RESTING IN BED WITH EYES OPEN CALL LIGHT IN REACH NO PROBLEMS WILL MONITER
[2020-08-14 20:00] VITALS: BP 146/82
--- NOTE | 2020-08-15 02:48 | NUR ---
PT RESTING IN BED WITH EYES CLOSED. RESPIRATIONS EVEN AND UNLABLORED. HER BED ALARM IS ON AND CALL LIGHT IS WITHIN REACH.
--- NOTE | 2020-08-15 08:00 | NUR ---
PT RESTING IN BED WITH EYES OPEN CALL LIGHT IN REACH WILL MONITER
--- NOTE | 2020-08-15 09:37 | NUR ---
PATIENT DISCHARGING HOME TODAY WITH FAMILY. [facility] WILL PROVIDE THERAPY AT HOME. NO NEW DME NEEDED AT THIS TIME. CARMEN SIGNED, IMM SERVED AND EXPLAINED, ONE GIVEN TO PATIENT AND ONE FILED IN CHART. COMPARE DATA REVIEWED AND PATIENT VOICES UNDERSTANDING. DR. OLEA OFFICE WILL CALL PATIENT WITH AN APPOINTMENT. DR. SAUCEDA 08/18/20 @ 1:00. DISCHARGE INSTRUCTIONS FAXED TO PCP, HOME HEALTH AND REVIEWED WITH PATIENT.
--- NOTE | 2020-08-15 14:12 | NUR ---
APPOINTMENT WITH DR. OLEA 08/22/20 @ 12:00. PATIENT HAS BEEN NOTIFIED
--- NOTE | 2020-08-15 16:00 | NUR ---
PT DISCHARGED TO HOME VIA WHEELCHAIR WITH SON DISCHARGE SUMMARY AND MEDICATIONS REVIEWED WITH PT NO QUESTIONS OR CONCERNS ALL MEDS CALLED TO PHARMACY
== END 2020-08-15 18:17 | disposition home health service (06) | DRG 71 ==
LOC: D.REHAB 17:30
PROVIDERS: Family Medicine; ADMIT Emergency Medicine; ATTEND Emergency Medicine
DX: G93.41 Metabolic encephalopathy (principal); N39.0 Urinary tract infection, site not specified; I50.20 Unspecified systolic (congestive) heart failure; E78.5 Hyperlipidemia, unspecified; E87.6 Hypokalemia; R53.1 Weakness; M48.00 Spinal stenosis, site unspecified; R41.82 Altered mental status, unspecified; M48.54XD Collapsed vertebra, not elsewhere classified, thoracic region, subsequent encounter for fracture with routine healing; R26.9 Unspecified abnormalities of gait and mobility; M54.16 Radiculopathy, lumbar region; I11.0 Hypertensive heart disease with heart failure; R63.4 Abnormal weight loss; R53.83 Other fatigue; F32.9 Major depressive disorder, single episode, unspecified; F41.9 Anxiety disorder, unspecified